=== PATIENT | male | born 1955 | race Two or more races ===

== ENCOUNTER 2024-12-18 10:31 | Inpatient (IN) | payer OTHER ==
[~2024-12-18] VITALS: Ht 162.6 cm; Wt 64.9 kg
[2024-12-18] MEDS ORDERED: CARBIDOPA-LEVO1 EAC1 (10:54)
[2024-12-18] MEDS ORDERED: CLONAZEPAM1 MG PO (10:55)
[2024-12-18] MEDS ORDERED: NORFLEX100MG PO (10:55)
[2024-12-18] MEDS ORDERED: DICLOFENAC-MIS1 EAC3 (10:55)
[2024-12-18] MEDS ORDERED: PAROXETINE CR37.5 MG (10:56)
[2024-12-18] MEDS ORDERED: FAMOtidine 10 MG/ML (4ML VIAL) IV ONE (11:30)
[2024-12-18] MEDS ORDERED: MORPHINE SULFATE 4 MG/ML VIAL IV ONE (11:30)
[2024-12-18] MEDS ORDERED: 0.9 % SODIUM CHLORIDE 1,000 ML IV ONE (11:45)
[2024-12-18] MEDS ORDERED: FAMOTIDINE/PF 20 MG/2 ML VIAL ONE (11:53)
[2024-12-18 12:14] LABS: BASO % 0.6 % (0.1-1.2); EOS # 0.03 (0.04-0.54); EOS % 0.5 % (0.7-7.0); LYMPH # 1.38 (1.18-3.74); LYMPH % 21.5 % (19.3-53.1); MEAN PLATELET VOLUME 10.50 fl (9.4-12.4); MONO # 0.61 (0.24-0.82); MONO % 9.5 % (4.7-12.5); NEUT # 4.34 (1.56-6.13); NEUT % 67.7 % (34.0-71.1); RED CELL DISTRIBUTION WIDTH 13.2 % (11.6-14.4)
[2024-12-18 12:37] LABS: INR 1.02
[2024-12-18 12:43] LABS: ALT/SGPT 13.0 U/L (12-78); AST/SGOT 33.0 U/L (15-37); BILIRUBIN TOTAL 0.86 mg/dL (0.3-1.2); BUN CREA RATIO 19.0 (7.0-25.0); CREATININE SERUM 0.75 mg/dL (0.70-1.30); GFR 103.26; GLOBULINA 3.1 G/DL (2.4-3.5); GLUCOSE FASTING 100.0 mg/dL (65-100); OSMOLALITY SERUM 286.0 MOSM/KG (275-295)
[2024-12-18 14:31] LABS: URINE APPEARANCE Clear; URINE BILIRRUBIN Negative (NEGATIVE); URINE BLOOD Negative; URINE COLOR Yellow; URINE GLUCOSE Negative (NEGATIVE); URINE KETONE Trace (NEGATIVE); URINE LEUKOCYTE Negative; URINE NITRATE Negative; URINE PROTEIN Negative (NEGATIVE); URINE UROBILINOGEN 1.0 E.U./dl
[2024-12-18 14:32] LABS: URINE BACTERIA 5.9 uL (0.0-1933); URINE EPITHELIAL CELLS 2.3 uL (0.0-38.8); URINE RBC 10.7 uL (0.0-20.8); URINE WBC 3.8 uL (0.0-23.2)
[2024-12-18 14:43] LABS: URINE CAST 0.00 uL (0.0-1.40)
[2024-12-18] MEDS ORDERED: FAMOTIDINE/PF 20 MG in 0.9 % SODIUM CHLORIDE 8 ML IV PUSH SCH (18:20)
[2024-12-18] MEDS ORDERED: CARBIDOPA/LEVODOPA 25/100 UDTAB PO SCH (18:20)
[2024-12-18] MEDS ORDERED: ONDANSETRON HCL 4 MG in 0.9 % SODIUM CHLORIDE 50 ML IV PRN (18:30)
[2024-12-18] MEDS ORDERED: MORPHINE SULFATE 4 MG/ML CARTRIDGE IV SCH (18:30)
[2024-12-18] MEDS ORDERED: ACETAMINOPHEN 500 MG GEL..CAP PO PRN (18:30)
[2024-12-18] MEDS ORDERED: 0.9 % SODIUM CHLORIDE 1,000 ML IV SCH (18:30)
[2024-12-18] MEDS ORDERED: MORPHINE SULFATE 4 MG/ML CARTRIDGE IV PRN (18:30)
[2024-12-18 22:23] LABS: COVID-19 AG NEGATIVE (NEGATIVE)
[2024-12-18 22:27] VITALS: BP 120/74
[2024-12-19 01:57] VITALS: BP 117/67; O2SAT 96
[2024-12-19 08:31] VITALS: BP 128/73
[2024-12-19] MEDS ORDERED: PAROXETINE HCL 20 MG TABLET PO SCH (09:00)
[2024-12-19] MEDS ORDERED: CLONAZEPAM 1 MG TABLET PO SCH (09:00)
== END 2024-12-19 17:14 | disposition left against medical advice (07) | DRG 395 ==
LOC: ER 10:31 → MEDJ 19:19 → SEC-K 19:19 → MEDJ 19:53
PROVIDERS: General Practice; ADMIT Internal Medicine; ATTEND Internal Medicine
DX: K64.2 Third degree hemorrhoids (principal); Z53.29 Procedure and treatment not carried out because of patient's decision for other reasons

== ENCOUNTER 2025-02-07 08:00 | Day surgery (SDC) | payer OTHER ==
[~2025-02-07 08:00] MED LIST: CARBIDOPA-LEVO1 EAC1; CLONAZEPAM1 MG PO; DICLOFENAC-MIS1 EAC3; NORFLEX100MG PO; PAROXETINE CR37.5 MG
[2025-02-07] MEDS ORDERED: BUPIVACAINE HCL 30 ML VIAL IJ ONE (11:15)
[2025-02-07] MEDS ORDERED: METRONIDAZOLE/SODIUM CHLORIDE 500 MG/100 ML PIGGYBACK IV ONE (11:15)
[2025-02-07] MEDS ORDERED: LIDOCAINE HCL 1%/EPINEPHRINE 20ML VIAL IJ ONE (11:15)
[2025-02-07] MEDS ORDERED: levoFLOXacin IN DEXTROSE 5 % 5 MG/ML PIGGYBAG IV ONE (11:15)
[2025-02-07] MEDS ORDERED: OXYCODONE HCL5 MG PO (11:22)
[2025-02-07] MEDS ORDERED: TAMSULOSIN HCL 0.4 MG CAP PO ONE ×2 (11:30→13:59)
== END 2025-02-07 17:05 | disposition home or self-care (01) ==
LOC: CIR.AMB 08:00
PROVIDERS: ATTEND Surgery
DX: K64.2 Third degree hemorrhoids (principal); K64.3 Fourth degree hemorrhoids; K62.89 Other specified diseases of anus and rectum; K62.5 Hemorrhage of anus and rectum; Z88.0 Allergy status to penicillin; Z91.013 Allergy to seafood